=== PATIENT | male | born 1995 | race Caucasian/White ===

== ENCOUNTER 2019-06-05 13:49 | Emergency (ER) | payer BC ==
[~2019-06-05] VITALS: Ht 180.3 cm; Wt 81.8 kg
[~2019-06-05 13:49] MED LIST: AMOXICILLIN875 MG PO; ATIVAN 1MG T1 MG/TAB PO; BENADRYL25 M2 PO; CELEXA 20MG20 MG/TAB PO; FLEXERIL 1010 MG/TAB PO; IBU800 M1 PO; LEXAPRO 5MG5 MG PO; MINOCIN 50M50 MG/CAP PO; PERIDEX (CHLOR480 ML MM; SINGULAIR 110 MG/TAB PO
[2019-06-05 13:55] VITALS: BP 132/61; PULSE 61; TEMP 98.7
== END 2019-06-05 15:45 | disposition left against medical advice (07) ==
LOC: COL.ER 13:49
DX: R10.13 Epigastric pain (principal); R07.9 Chest pain, unspecified

== ENCOUNTER 2022-01-14 09:24 | Emergency (ER) | payer SELFPAY ==
[~2022-01-14] VITALS: Ht 180.3 cm; Wt 88.6 kg
[~2022-01-14 09:24] MED LIST changes: -CELEXA 20MG20 MG/TAB PO; +CELEXA40 MG PO
[2022-01-14 09:27] VITALS: TEMP 97.7
[2022-01-14 09:56] LABS: BASO # 0.1 K/mm3 (0.0-0.2); BASO % 0.7 % (0.0-2.0); EOS # 0.6 K/mm3 (0.0-0.7); EOS % 4.2 % (0.0-4.0); GRAN # 10.2 K/mm3 (1.4-6.5); GRAN % 70.4 % (42.2-75.2); HEMATOCRIT 46.2 % (42.0-52.0); HEMOGLOBIN 16.2 g/dl (13.5-18.0); LYMPH # 2.7 K/mm3 (1.2-3.4); LYMPH % 18.3 % (20.0-51.0); MEAN CELL VOLUME 85 fl (80.0-100.0); MEAN CORPUSCULAR HEMOGLOBIN 30 pg (27-31); MEAN CORPUSCULAR HGB CONC 35 g/dl (33.0-37.0); MEAN PLATELET VOLUME 8.9 fl (7.4-10.4); MONO # 0.8 K/mm3 (0.1-0.6); MONO % 5.8 % (1.7-9.3); PLATELET COUNT 325 K/mm3 (130-400); RED BLOOD COUNT 5.44 M/mm3 (4.20-5.60); REDCELL DISTRIBUTION WIDTH-CV 12.4 % (11.5-14.5)
[2022-01-14 10:15] LABS: ALBUMIN 4.6 gm/dL (3.5-5.0); BILIRUBIN,TOTAL 0.3 mg/dL (0.2-1.2); POTASSIUM 4.6 mmol/L (3.5-4.5); TOTAL PROTEIN 7.9 gm/dL (6.2-8.1)
[2022-01-14] MEDS ORDERED: ZOFRAN ODT4 MG PO (10:51)
[2022-01-14 11:00] VITALS: BP 150/82; PULSE 66
== END 2022-01-14 11:11 | disposition home or self-care (01) ==
LOC: COL.ER 09:24
PROVIDERS: Emergency Medicine
DX: F12.10 Cannabis abuse, uncomplicated (principal); D72.829 Elevated white blood cell count, unspecified; Z20.822 Contact with and (suspected) exposure to COVID-19
CPT/HCPCS: J1790; J2405; J7120

== ENCOUNTER → 2022-03-05 | Outpatient (CLI) | payer OTHER ==
[~2022-03-05] MED LIST changes: +ZOFRAN ODT4 MG PO
== END ==
LOC: COL.RAD 02-28 07:30
DX: R10.11 Right upper quadrant pain (principal)